=== PATIENT | female | born 1990 | race Two or more races ===

== ENCOUNTER 2017-02-02 13:04 | Emergency (ER) | payer OTHER ==
[~2017-02-02] VITALS: Ht 149.9 cm; Wt 59.0 kg
[~2017-02-02 13:04] MED LIST: ALBUTEROL SULF8.5 GM INH; AZITHROMYCIN250 MG ORAL; COLACE100 MG ORAL; CYCLOBENZAPRINE10 MG ORAL; IBUPROFEN600 MG ORAL; NAPROSYN500 M1 ORAL; NORCO 5-325 TA1 EAC1 ORAL; PREDNISONE20 MG ORAL; PREDNISONE50 MG ORAL; VALIUM5 MG ORAL
[2017-02-02 13:09] VITALS: BP 107/64
[2017-02-02] MEDS ORDERED: AMOXICILLIN500 MG ORAL (13:41)
[2017-02-02] MEDS ORDERED: IBUPROFEN600 MG ORAL (13:41)
[2017-02-02] MEDS ORDERED: TESSALON PERLE100 MG ORAL (13:41)
[2017-02-02 13:53] VITALS: BP 112/67
--- NOTE | 2017-02-02 14:37 | Emergency Room Report ---
History of Present Illness General Chief Complaint: Flu Like Symptoms Present Illness HPI The patient is a 26-year-old female presenting for sore throat, productive cough , and subjective fevers for the past 2 weeks. She has not tried any medications. She denies any sick contacts or recent travel. Pain is described as an 8/10 dull ache to the back of the throat and does not radiate. Pain is worse with swallowing. She denies any other symptoms including N, V, MORGAN, neck pain, Allergies: Coded Allergies: No Known Allergies (Unverified , 12/29/13) Patient History Past Medical History: see triage record Pertinent Family History: none Reviewed Nursing Documentation: PMH: Agreed, PSxH: Agreed Nursing Documentation-PMH Hx Asthma: Yes Hx Gastrointestinal Problems: Yes - GERD Hx Seizures: Yes Review of Systems All Other Systems: negative except mentioned in HPI Physical Exam Vital Signs Date Time Temp Pulse Resp B/P Pulse Ox O2 Delivery O2 Flow Rate FiO2 02/02/17 13:09 97.9 20 107/64 100 Room Air 02/02/17 13:09 86 Sp02 EP Interpretation: reviewed, normal General Appearance: no apparent distress, alert, GCS 15, non-toxic Head: normocephalic, atraumatic Eyes: bilateral eye PERRL, bilateral eye normal inspection ENT: hearing grossly normal, no angioedema, normal voice, uvula midline, tonsillar swelling, pharyngeal erythema Neck: full range of motion, supple/symm/no masses Respiratory: chest non-tender, lungs clear, normal breath sounds, no wheezing, speaking full sentences Cardiovascular #1: regular rate, rhythm, no edema Musculoskeletal: back normal, gait/station normal, normal range of motion, non- tender Neurologic: alert, oriented x3, responsive, motor strength/tone normal, sensory intact, speech normal Psychiatric: judgement/insight normal, memory normal, mood/affect normal, no suicidal/homicidal ideation Skin: normal color, no rash, warm/dry, well hydrated Lymphatic: no adenopathy Medical Decision Making PA Attestation Dr. Alonzo is my supervising physician. Patient management was discussed with my supervising physician Diagnostic Impression: Primary Impression: Pharyngitis, acute Qualified Codes: J02.9 - Acute pharyngitis, unspecified ER Course The patient is a 26-year-old female presenting for sore throat, productive cough , and subjective fevers Differential diagnosis include but not limited to pharyngitis, sinusitis, AOM, bronchitis, PNA Physical exam: Vitals within normal limits. Afebrile. No apparent distress HEENT exam: There is bilateral tonsillar edema, erythema. Uvula midline. Moist mucous membranes. There is bilateral cervical lymphadenopathy. Lungs are clear to auscultation bilaterally Skin is warm and dry. No rash The patient will be discharged home with a prescription for amoxicillin and is given ER precautions. Patient will followup with primary care Last Vital Signs Date Time Temp Pulse Resp B/P Pulse Ox O2 Delivery O2 Flow Rate FiO2 02/02/17 13:53 88 16 112/67 99 Room Air 02/02/17 13:09 97.9 Status: improved Disposition: HOME, SELF-CARE Condition: Improved Scripts Benzonatate* (TESSALON PERLE*) 100 Mg Capsule 100 MG ORAL THREE TIMES A DAY, #15 PERLE Prov: TRESA VENTURA.A. 02/02/17 Amoxicillin* (AMOXIL*) 500 Mg Capsule 500 MG ORAL Q12HR, #20 CAP Prov: TRESA VENTURA P.A. 02/02/17 Ibuprofen* (MOTRIN*) 600 Mg Tablet 600 MG ORAL Q8H Y for For Pain, #30 TAB 0 Refills Prov: TRESA VENTURA P.A. 02/02/17 Referrals: [facility],REFERRING (PCP) Patient Instructions: Pharyngitis Additional Instructions: I discussed my findings with the patient. All questions and concerns have been answered. Treatment and medication compliance have been addressed. I advised the patient that they need to follow up with PMD in 3-5 days. Return to ED if pain remains or worsens, cough worsens or remains, you notice blood in your sputum, you notice wheezing, you experience a fever, or if needed for any reason. Patient verbalized understanding of discharge instructions. TRESA VENTURA Feb 02, 2017 14:36
== END 2017-02-02 13:55 | disposition home or self-care (01) ==
LOC: EMR 13:40
DX: J02.9 Acute pharyngitis, unspecified (principal); K21.9 Gastro-esophageal reflux disease without esophagitis; J45.909 Unspecified asthma, uncomplicated
CPT/HCPCS: 99284

== ENCOUNTER 2017-08-03 17:06 | Emergency (ER) | payer OTHER ==
[~2017-08-03] VITALS: Ht 149.9 cm; Wt 62.6 kg
[~2017-08-03 17:06] MED LIST changes: +AMOXICILLIN500 MG ORAL; +TESSALON PERLE100 MG ORAL
[2017-08-03 17:25] VITALS: BP 125/76
[2017-08-03 17:46] LABS: APPEARANCE,URINE CLEAR; KETONES,URINE NEGATIVE (NEGATIVE); LEUKOCYTE ESTERASE ,URINE 1+ (NEGATIVE); NITRITE,URINE NEGATIVE (NEGATIVE); PH,URINE 6 (4.5-8.0); PROTEIN,URINE NEGATIVE (NEGATIVE); UROBILINOGEN,URINE NORMAL MG/DL (0.0-1.0)
[2017-08-03 17:50] LABS: BACTERIA,URINE FEW /HPF; RBC,URINE 0-2 /HPF (0 - 2); SQUAMOUS EPITHELIAL CELL,UR FEW /LPF (NONE/OCC); WBC,URINE 0-2 /HPF (0 - 2)
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
[2017-08-03] MEDS ORDERED: ZOFRAN ODT4 MG ORAL (18:03)
[2017-08-03] MEDS ORDERED: PEPCID40 MG PO (18:03)
[2017-08-03 18:10] VITALS: BP 125/76
== END 2017-08-03 18:08 | disposition home or self-care (01) ==
LOC: EMR 17:49
DX: K29.70 Gastritis, unspecified, without bleeding (principal); K21.9 Gastro-esophageal reflux disease without esophagitis; J45.909 Unspecified asthma, uncomplicated
CPT/HCPCS: 81003; 81025; 99284

== ENCOUNTER 2017-08-14 12:58 | Emergency (ER) | payer OTHER ==
[~2017-08-14] VITALS: Ht 149.9 cm; Wt 62.6 kg
[~2017-08-14 12:58] MED LIST changes: +PEPCID40 MG PO; +ZOFRAN ODT4 MG ORAL
[2017-08-14 13:10] VITALS: BP 115/71
--- NOTE | 2017-08-14 13:23 | Emergency Room Report ---
History of Present Illness General Chief Complaint: Nausea, Vomiting, and Diarrhea Source: Patient Present Illness HPI 27 YO Female presents to the ED c/oN/V x 1 month and non -bloody diarrhea x 2 days. pt. reports epigastric burning, and bloating x 1 month. has GI appt. for next month. pt. returned from [place] recently, denies fevers, chills, blood in the stool/vomit, or black tarry stools. pt. is UTD with vaccinations. denies rashes or skin discoloration. Pt. states prior to [place] trip she was known to have a sensitive stomach with intermittent n/v, however this month she has had a significant increase in frequency of her symptoms. Denies fevers or chills. Denies CP, Palpitations, LOC, AMS, dizziness, Changes in Vision, Sensation, paresthesias, or a sudden severe headache. Allergies: Coded Allergies: No Known Allergies (Unverified , 12/29/13) Patient History Past Medical History: see triage record Past Surgical History: none Pertinent Family History: none Now: No Immunizations: UTD Reviewed Nursing Documentation: PMH: Agreed, PSxH: Agreed Nursing Documentation-PMH Past Medical History: No History, Except For Hx Asthma: Yes Hx Gastrointestinal Problems: Yes - GERD Hx Seizures: Yes Review of Systems All Other Systems: negative except mentioned in HPI Physical Exam Vital Signs Date Time Temp Pulse Resp B/P (MAP) Pulse Ox O2 Delivery O2 Flow Rate FiO2 08/14/17 13:00 97.2 65 16 115/71 98 Room Air Sp02 EP Interpretation: reviewed, normal General Appearance: no apparent distress, alert, GCS 15, non-toxic Head: normocephalic, atraumatic Eyes: bilateral eye normal inspection, bilateral eye PERRL ENT: hearing grossly normal, normal voice Neck: full range of motion Respiratory: lungs clear, normal breath sounds, speaking full sentences Cardiovascular #1: regular rate, rhythm Gastrointestinal: soft, no mass, no organomegaly, tenderness - generalized epigastric ttp to deep palpation, otherwise unremarkable, other - Negative [place] signs, Negative MacBurney's sign, Negative Rosvigns Sign, Negative Psoas , No Peritoneal signs. no jaundice Rectal: deferred Genitourinary: normal inspection, no CVA tenderness Musculoskeletal: back normal, gait/station normal, normal range of motion Neurologic: alert, oriented x3, responsive, motor strength/tone normal, sensory intact, speech normal Skin: normal color, no rash, other - no jaundice Lymphatic: no adenopathy Medical Decision Making PA Attestation Dr. mcmahon is my supervising Physician whom patient management has been discussed with. Diagnostic Impression: Primary Impression: Nausea, vomiting, and diarrhea ER Course 27 YO Female presents to the ED c/oN/V x 1 month and non -bloody diarrhea x 2 days. pt. reports epigastric burning, and bloating x 1 month. has GI appt. for next month. pt. returned from [place] recently, denies fevers, chills, blood in the stool/vomit, or black tarry stools. pt. is UTD with vaccinations. denies rashes or skin discoloration. Pt. states prior to [place] trip she was known to have a sensitive stomach with intermittent n/v, however this month she has had a significant increase in frequency of her symptoms. Denies fevers or chills. Denies CP, Palpitations, LOC, AMS, dizziness, Changes in Vision, Sensation, paresthesias, or a sudden severe headache. Ddx considered but are not limited to GE, colitis, acute appy, SBO, Cyclical Vomiting secondary to THC, * Vital signs: pt. is afebrile, non-toxic in appearance. H&PE are most consistent with Gastro enteritis lasting longer than 2 weeks. will do labs as pt. is a bounce back. abx will be considered although clinically pt. does not present in a manner in which I would promptly start abx on, will made educated decision with pt. once labs are back and we go over them. ORDERS: CBC: unremarkable, WNL- mild elevation in wbc of 12.5 which is most consistent with stress reaction from vomiting. -CMP: WNL- unremarkable, electrolytes ok, good renal function -Urine Hcg: Negative -UA: some rbc's, few bacteria with few squamous cells most consistent with contamination, no significant increase in inflammatory markers to suggest urinary infection at this time. ED INTERVENTIONS: -1000 NS iv hydration,--- Pt. only received 500cc as she requested to d/c before liter was finished. -Reglan 10 mg -PT. is now able to tolerate oral fluids. d/w pt. the results of laboratory work, and that GI specialist evaluation is a must for further work up of her prolonged symptoms, and history of sensitive stomach. collaborated with pt. in the decision that she will be treated conservatively until her GI appt. but if for any reason her symptoms change, unable to keep fluids down, fevers or blood to return immediately and she will be treated more aggressively. -I do not suspect an emergent condition at this time. With current presentation , pt. is stable for close outpatient follow up with conservative treatment until GI Specialist appt. . D/w pt. to return promptly to ED with worsening or new symptoms.- Pt. verbalizes' understanding and agreement with proposed treatment plan. DISCHARGE: At this time pt. is stable for d/c to home. Will provide printed patient care instructions, and any necessary prescriptions. Care plan and follow up instructions have been discussed with the patient prior to discharge. Labs Test 08/14/17 13:15 08/14/17 13:35 Urine Color Yellow Urine Appearance Slightly cloudy Urine pH 5 (4.5-8.0) Urine Specific [place] 1.025 (1.005-1.035) Urine Protein 2+ (NEGATIVE) Urine Glucose (UA) Negative (NEGATIVE) Urine Ketones 1+ (NEGATIVE) Urine Occult Blood 3+ (NEGATIVE) Urine Nitrite Negative (NEGATIVE) Urine Bilirubin Negative (NEGATIVE) Urine Urobilinogen 1 MG/DL (0.0-1.0) Urine Leukocyte Esterase 1+ (NEGATIVE) Urine RBC 2-4 /HPF (0 - 2) Urine WBC 2-4 /HPF (0 - 2) Urine Squamous Epithelial Cells Few /LPF (NONE/OCC) Urine Amorphous Sediment Few /LPF (NONE) Urine Bacteria Few /HPF (NONE) Urine Mucus Few /LPF (NONE/OCC) Urine HCG, Qualitative Negative White Blood Count 12.3 K/UL (4.8-10.8) Red Blood Count 4.71 M/UL (4.20-5.40) Hemoglobin 14.3 G/DL (12.0-16.0) Hematocrit 42.5 % (37.0-47.0) Mean Corpuscular Volume 90 FL (80-99) Mean Corpuscular Hemoglobin 30.3 PG (27.0-31.0) Mean Corpuscular Hemoglobin Concent 33.6 G/DL (32.0-36.0) Red Cell Distribution Width 10.9 % (11.6-14.8) Platelet Count 274 K/UL (150-450) Mean Platelet Volume 8.1 FL (6.5-10.1) Neutrophils (%) (Auto) 72.7 % (45.0-75.0) Lymphocytes (%) (Auto) 20.1 % (20.0-45.0) Monocytes (%) (Auto) 5.3 % (1.0-10.0) Eosinophils (%) (Auto) 1.0 % (0.0-3.0) Basophils (%) (Auto) 0.9 % (0.0-2.0) Sodium Level 136 MMOL/L (136-145) Potassium Level 3.7 MMOL/L (3.5-5.1) Chloride Level 102 MMOL/L (98-107) Carbon Dioxide Level 26 MMOL/L (21-32) Anion Gap 8 mmol/L (5-15) Blood Urea Nitrogen 10 mg/dL (7-18) Creatinine 0.7 MG/DL (0.55-1.30) Estimat Glomerular Filtration Rate > 60 mL/min (>60) Glucose Level 84 MG/DL (74-106) Calcium Level 8.9 MG/DL (8.5-10.1) Total Bilirubin 0.3 MG/DL (0.2-1.0) Aspartate Amino Transf (AST/SGOT) 16 U/L (15-37) Alanine Aminotransferase (ALT/SGPT) 22 U/L (12-78) Alkaline Phosphatase 76 U/L (46-116) Total Protein 7.1 G/DL (6.4-8.2) Albumin 3.6 G/DL (3.4-5.0) Globulin 3.5 g/dL Albumin/Globulin Ratio 1.0 (1.0-2.7) Lipase 112 U/L (73-393) Last Vital Signs Date Time Temp Pulse Resp B/P (MAP) Pulse Ox O2 Delivery O2 Flow Rate FiO2 08/14/17 13:00 97.2 65 16 115/71 98 Room Air Disposition: HOME, SELF-CARE Condition: Stable Scripts Omeprazole (OMEPRAZOLE) 20 Mg Tablet.dr 20 MG ORAL DAILY for 20 Days, #20 TAB Prov: Sridevi Gregory 08/14/17 Metoclopramide Hcl* (REGLAN*) 10 Mg Tablet 10 MG ORAL THREE TIMES A DAY, #30 TAB Prov: Sridevi Gregory 08/14/17 Referrals: [facility] Patient Instructions: VOMITING AND DIARRHEA, Nonspecific (Adult) Additional Instructions: Take medications as directed. Follow up with a GI SPECIALIST in 3-5 days, even if your symptoms have resolved. --Please review GI SPECIALIST REFERRAL. Return sooner to ED if new symptoms occur, or current symptoms become worse. - Please note that this Emergency Department Report was dictated using [email or web address] business analyst technology software, occasionally this can lead to erroneous entry secondary to interpretation by the dictation equipment. Sridevi Gregory Aug 14, 2017 13:23
[2017-08-14] MEDS ORDERED: Metoclopramide 10mg/2ml Inj IVP ONE (13:30)
[2017-08-14 13:35] LABS: APPEARANCE,URINE SLIGHTLY CLOUDY; BILIRUBIN, URINE NEGATIVE (NEGATIVE); GLUCOSE, URINE (UA) NEGATIVE (NEGATIVE); KETONES,URINE 1+ (NEGATIVE); LEUKOCYTE ESTERASE ,URINE 1+ (NEGATIVE); NITRITE,URINE NEGATIVE (NEGATIVE); PH,URINE 5 (4.5-8.0); PROTEIN,URINE 2+ (NEGATIVE); UROBILINOGEN,URINE 1 MG/DL (0.0-1.0)
[2017-08-14 13:44] LABS: COLOR,URINE YELLOW
[2017-08-14 13:52] LABS: BASOPHILS % (AUTO) 0.9 % (0.0-2.0); HEMATOCRIT 42.5 % (37.0-47.0); HEMOGLOBIN 14.3 G/DL (12.0-16.0); LYMPHOCYTES % (AUTO) 20.1 % (20.0-45.0); MEAN CORPUSCULAR VOLUME 90 FL (80-99); MONOCYTES % (AUTO) 5.3 % (1.0-10.0); NEUTROPHILS % (AUTO) 72.7 % (45.0-75.0); PLATELET COUNT 274 K/UL (150-450); RED BLOOD COUNT 4.71 M/UL (4.20-5.40); RED CELL DISTRIBUTION WIDTH 10.9 % (11.6-14.8); WHITE BLOOD COUNT 12.3 K/UL (4.8-10.8)
[2017-08-14 14:12] LABS: ALANINE AMINOTRANSFERASE 22 U/L (12-78); ALBUMIN 3.6 G/DL (3.4-5.0); ALKALINE PHOSPHATASE 76 U/L (46-116); ANION GAP 8 mmol/L (5-15); ASPARTATE AMINO TRANSFERASE 16 U/L (15-37); BILIRUBIN,TOTAL 0.3 MG/DL (0.2-1.0); BLOOD UREA NITROGEN 10 mg/dL (7-18); CALCIUM 8.9 MG/DL (8.5-10.1); CARBON DIOXIDE 26 MMOL/L (21-32); CHLORIDE 102 MMOL/L (98-107); CREATININE 0.7 MG/DL (0.55-1.30); POTASSIUM 3.7 MMOL/L (3.5-5.1); SODIUM 136 MMOL/L (136-145)
[2017-08-14] MEDS ORDERED: REGLAN10 MG ORAL (14:53)
[2017-08-14] MEDS ORDERED: OMEPRAZOLE20 M3 ORAL (14:53)
[2017-08-14 15:04] VITALS: BP 115/71
== END 2017-08-14 15:00 | disposition home or self-care (01) ==
LOC: EMR 13:22
DX: R11.2 Nausea with vomiting, unspecified (principal); R19.7 Diarrhea, unspecified; J45.909 Unspecified asthma, uncomplicated; K21.9 Gastro-esophageal reflux disease without esophagitis
CPT/HCPCS: 36415; 80053; 81003; 81025; 83690; 85025; 96361; 96374; 99284; J2765

== ENCOUNTER 2018-05-21 09:18 | Emergency (ER) | payer OTHER ==
[~2018-05-21] VITALS: Ht 149.9 cm; Wt 58.1 kg
[~2018-05-21 09:18] MED LIST changes: +OMEPRAZOLE20 M3 ORAL; +REGLAN10 MG ORAL
--- NOTE | 2018-05-21 09:43 | Emergency Room Report ---
History of Present Illness General Chief Complaint: Skin Rash/Abscess Source: Patient Present Illness HPI Patient presents with complaints of rash on her upper arm and legs Patient felt that there was likely an allergic reaction and had used some Benadryl without much relief The areas came on yesterday Patient denies any recent travel Denies any chest pain or shortness of breath denies any back or flank pain Denies any vomiting or diarrhea Denies any new medication Allergies: Coded Allergies: No Known Allergies (Unverified , 12/29/13) Patient History Past Medical History: see triage record Pertinent Family History: none Last Menstrual Period: 04/20/18 Now: No Reviewed Nursing Documentation: PMH: Agreed; PSxH: Agreed Nursing Documentation-PMH Past Medical History: No History, Except For Hx Asthma: Yes Hx Gastrointestinal Problems: Yes - GERD Hx Seizures: Yes Review of Systems All Other Systems: negative except mentioned in HPI Physical Exam Vital Signs Date Time Temp Pulse Resp B/P (MAP) Pulse Ox O2 Delivery O2 Flow Rate FiO2 05/21/18 09:23 98.2 66 18 130/70 99 Room Air 98.2 Sp02 EP Interpretation: reviewed, normal General Appearance: well appearing, no apparent distress Head: normocephalic, atraumatic Eyes: bilateral eye PERRL, bilateral eye EOMI ENT: hearing grossly normal, normal pharynx, TMs + canals normal, uvula midline Neck: full range of motion, supple, no meningismus, no bony tend Respiratory: lungs clear, normal breath sounds, no rhonchi, no respiratory distress, no retraction, no accessory muscle use Cardiovascular #1: normal peripheral pulses, regular rate, rhythm, no edema, no gallop, no JVD, no murmur Gastrointestinal: normal bowel sounds, non tender, soft, no mass, no organomegaly, non-distended, no guarding, no hernia, no pulsatile mass, no rebound Genitourinary: no CVA tenderness Musculoskeletal: normal inspection Neurologic: oriented x3, responsive, software engineering specialist III-XII nml as tested, motor strength/ tone normal, sensory intact Psychiatric: mood/affect normal Skin: other - Several areas of mild raised erythematous lesions, most of the areas are in pairs, appeared to be likely consistent with spider/insect bites, no obvious fluctuance, no dermatomal spread Lymphatic: normal inspection, no adenopathy Medical Decision Making Diagnostic Impression: Primary Impression: Rash and other nonspecific skin eruption Additional Impression: Insect bite ER Course Patient has findings consistent with insect bite I do not suspect any obvious secondary cellulitis Patient is provided with symptomatically medication and requires initial conservative outpatient trial with close follow-up Last Vital Signs Date Time Temp Pulse Resp B/P (MAP) Pulse Ox O2 Delivery O2 Flow Rate FiO2 05/21/18 09:23 98.2 66 18 130/70 99 Room Air 98.2 Status: improved Disposition: HOME, SELF-CARE Condition: Stable Scripts Calamine/Zinc Oxide (CALAMINE LOTION*) 177 Ml Suspension 1 APPLIC TP TID for 7 Days, ML 0 Refills Prov: Chantal Barker DO 05/21/18 Prednisone* (PREDNISONE*) 20 Mg Tablet 20 MG ORAL BID, #8 TAB Prov: Chantal Barker DO 05/21/18 Additional Instructions: Patient is provided with the discharge instructions notified to follow up with primary doctor in the next 2-3 days otherwise return to the er with any worsening symptoms. Please note that this report is being documented using BM[employer] technology. This can lead to erroneous entry secondary to incorrect interpretation by the dictating instrument. Chantal Barker DO May 21, 2018 09:42
[2018-05-21] MEDS ORDERED: CALAMINE LOTIO177 ML TP (09:47)
[2018-05-21] MEDS ORDERED: PREDNISONE20 MG ORAL (09:47)
[2018-05-21 10:00] VITALS: BP 130/70
[2018-05-21 10:05] VITALS: BP 119/87
== END 2018-05-21 10:05 | disposition home or self-care (01) ==
LOC: EMR 09:50
DX: S40.862A Insect bite (nonvenomous) of left upper arm, initial encounter (principal); S40.861A Insect bite (nonvenomous) of right upper arm, initial encounter; S80.862A Insect bite (nonvenomous), left lower leg, initial encounter; S80.861A Insect bite (nonvenomous), right lower leg, initial encounter; W57.XXXA Bitten or stung by nonvenomous insect and other nonvenomous arthropods, initial encounter; Y93.89 Activity, other specified; Y92.9 Unspecified place or not applicable; J45.909 Unspecified asthma, uncomplicated
CPT/HCPCS: 99284

== ENCOUNTER 2019-06-14 20:33 | Emergency (ER) | payer MEDICAID, OTHER ==
[~2019-06-14] VITALS: Ht 149.9 cm; Wt 56.7 kg
[~2019-06-14 20:33] MED LIST changes: +CALAMINE LOTIO177 ML TP
[2019-06-14] MEDS ORDERED: GABAPENTIN400 MG ORAL (20:41)
[2019-06-14 20:46] VITALS: BP 134/75
--- NOTE | 2019-06-14 20:48 | NUR ---
ER Nurse Note: Pt walked in c/o flu like symptoms for one week. Pt stated she has a headache, sore throat, nasal congestion, body aches, difficutly swollowing. Pt states taking OTC meds but does not effective. Oral temp 98.7F. Pt coughing with minor clear phlegm. Will continue to montior.
--- NOTE | 2019-06-14 20:56 | Emergency Room Report ---
History of Present Illness General Chief Complaint: Flu Like Symptoms Source: Patient Present Illness HPI Disclaimer: Please note that this report is being documented using DRAGON technology. This can lead to erroneous entry secondary to incorrect interpretation by the dictating instrument. HPI: 29-year-old female with history of asthma presents for evaluation of cough and fevers. Symptoms have been present approximately 7 days. Started with nasal congestion, sore throat and nausea without vomiting. She has been noticing fevers at home between 101 103 which responded well to NSAIDs. She has been taking Mucinex, cough syrup and Tylenol/Motrin as needed with good control of her symptoms however she notes a progressive worsening nonproductive cough and due to lack of improvement in her symptoms over the past 7 days came in today for evaluation. She denies any rash, abdominal pain, vomiting, diarrhea, chest pain, shortness of breath. She has been using her albuterol inhaler intermittently but states not too much. PMH: Asthma PSH: None Allergies: Denies Social Hx: Denies drug, alcohol or tobacco use Allergies: Coded Allergies: No Known Allergies (Unverified , 12/29/13) Patient History Last Menstrual Period: 05/16/19 Now: No Nursing Documentation-PMH Hx Asthma: Yes - bronchitis Hx Gastrointestinal Problems: Yes - GERD Hx Seizures: Yes Review of Systems All Other Systems: negative except mentioned in HPI Physical Exam Vital Signs Date Time Temp Pulse Resp B/P (MAP) Pulse Ox O2 Delivery O2 Flow Rate FiO2 06/14/19 20:37 98.6 91 22 134/75 (94) 98 Room Air General: Awake and alert, no acute distress HEENT: NC/AT. No tenderness over the frontal or maxillary sinuses. EOMI. anicteric sclera. Pharynx is erythematous but no edema. Tonsils are 1+, no exudate. Moist mucous membranes Cardiovascular: RRR. S1 and S2 normal. No murmur appreciated Resp: Normal work of breathing. No cough, wheezing or crackles appreciated Abdomen: Abdomen is soft, nondistended. Nontender Skin: Intact. No abrasions, laceration or rash over the exposed skin MSK: Normal tone and bulk. Moving all extremities. No obvious deformity. Neuro: Awake and alert. Mentating appropriately. Medical Decision Making Diagnostic Impression: Primary Impression: URI (upper respiratory infection) ER Course 39-year female presents for evaluation of 1 week worsening fevers and cough. Symptoms are consistent with an upper respiratory infection, most likely viral in nature however will obtain a two-view chest x-ray to rule out pneumonia. Otherwise, she is well-appearing. I do not believe blood work is indicated at this time as she is non-vomiting, no diarrhea, eating and drinking well and has no other complaints at this time. Chest X-Ray Diagnostic Results Chest X-Ray Diagnostic Results : Chest X-Ray Ordered: Yes # of Views/Limited/Complete: 2 View Indication: Shortness of Breath EP Interpretation: Yes Interpretation: no consolidation, no effusion, no pneumothorax Impression: No acute disease Electronically Signed by: Electronically signed by Dr. Mehul Weeks Last Vital Signs Date Time Temp Pulse Resp B/P (MAP) Pulse Ox O2 Delivery O2 Flow Rate FiO2 06/14/19 20:46 98.6 91 22 134/75 98 Room Air Reevaluation Impression No evidence of pneumonia on chest x-ray. The patient is feeling well and would like to be discharged home. She can follow-up as an outpatient and is stable for discharge. She will continue her current medications. I discussed with her the need for PMD follow-up especially if symptoms fail to improve in the next few days. She can return to the emergency department anytime with any new or worsening symptoms. Disposition: HOME, SELF-CARE Condition: Stable Mehul Weeks MD Jun 14, 2019 20:56
[2019-06-14 21:32] VITALS: BP 134/75
--- NOTE | 2019-06-14 21:32 | NUR ---
ER Nurse Note: Pt seen, treated, medically cleared for discharge by ERMD. Discharge instuctions given with repeat verbalization by pt. Emphasized to follow up with primay care provider. All orders completed per ERMD orders. Pt a&ox4, VSS, no signs of distress. ID band removed. All questions answered per pt's questions. Pt left with all belongings, left with own transportation.
== END 2019-06-14 21:32 | disposition home or self-care (01) ==
LOC: EMR 21:09
DX: J06.9 Acute upper respiratory infection, unspecified (principal); K21.9 Gastro-esophageal reflux disease without esophagitis
CPT/HCPCS: 71046; 99283

== ENCOUNTER 2019-08-23 10:51 | Emergency (ER) | payer OTHER ==
[~2019-08-23] VITALS: Ht 149.9 cm; Wt 58.1 kg
[~2019-08-23 10:51] MED LIST changes: +GABAPENTIN400 MG ORAL
--- NOTE | 2019-08-23 11:08 | NUR ---
ED Nurse Note: Patient presented to ER brought in by self from home with right 3rd digit laceration with metal object. Patient pain level 6/10. Wound is not actively bleeding. Patient aaox4. Patient ambulatory. No acute distress noted.
[2019-08-23 11:10] VITALS: BP 111/72
[2019-08-23] MEDS ORDERED: Tetanus/Diptheria/Pertussis IM ONE (11:15)
[2019-08-23] MEDS ORDERED: Lidocaine 1% Plain 30 ml INJ ONE (12:15)
--- NOTE | 2019-08-23 12:47 | Emergency Room Report ---
History of Present Illness General Chief Complaint: Laceration Source: Patient Present Illness HPI 29-year-old female accompanied by family complaining of right third finger laceration sustained 1 hour ago. Was disassembling couch when that will cut her right third finger. Bleeding. Pain is 3 out of 10. No aggravating/ relieving factors. Unknown last tetanus vaccine. Denies numbness. Not on blood thinner. Allergies: Coded Allergies: No Known Allergies (Unverified , 12/29/13) Patient History Past Medical History: asthma Past Surgical History: none Social History: Denies: smoking, alcohol use Now: No Nursing Documentation-[facility] [place] Past Medical History: No History, Except For Hx Asthma: Yes - bronchitis Hx Gastrointestinal Problems: Yes - GERD Hx Seizures: Yes Review of Systems All Other Systems: negative except mentioned in HPI Physical Exam Vital Signs Date Time Temp Pulse Resp B/P (MAP) Pulse Ox O2 Delivery O2 Flow Rate FiO2 08/23/19 11:01 98.1 72 18 111/72 (85) 99 Room Air Sp02 EP Interpretation: reviewed, normal Respiratory: chest non-tender, lungs clear, normal breath sounds, speaking full sentences Cardiovascular #1: regular rate, rhythm, no edema Musculoskeletal: non-tender Neurologic: sensory intact - Sensation intact to light touch. Neurovascularly intact. (Able to give thumbs up, make an ok sign, cross digits 2 and 3, Psychiatric: judgement/insight normal, memory normal, mood/affect normal Skin: laceration - 1 cm C-shaped laceration over right third PIP joint, edges easily approximatable Procedures Laceration/Wound Repair Laceration/Wound Repair : Consent: Verbal Wound Location: upper extremity Wound Length (cm): 1 Wound Explored: no foreign body removed Irrigated w/ Saline (ccs): 40 Betadine Prep?: Yes Anesthesia: 1% Lidocaine Volume Anesthetic (ccs): 2 Wound Repaired With: sutures Suture Size/Type: 5:0, proline Number of Sutures: 3 Layer Closure?: No Sterile Dressing Applied?: Yes Splint Applied?: Yes Patient Tolerated: Well Complications: None Medical Decision Making PA Attestation This patient was seen under the direct supervision of Dr. Coates, who directed all aspects of care and diagnostic interpretation. Reaction to Intervention: Improved Diagnostic Impression: Primary Impression: Laceration of right middle finger Qualified Codes: S61.212A - Laceration without foreign body of right middle finger without damage to nail, initial encounter ER Course ED course HPI: 29-year-old female accompanied by family complaining of right third finger laceration sustained 1 hour ago. Was disassembling couch when that will cut her right third finger. Bleeding. Pain is 3 out of 10. No aggravating/ relieving factors. Unknown last tetanus vaccine. Denies numbness. Not on blood thinner. Ddx: laceration, foreign body, arterial injury, nerve injury, fracture or tendon injury. HPI & PE consistent with: Laceration of right middle finger. Orders/ Interventions: Patient was able to flex and extend digits against resistance distal to the laceration with no apparent tendon injury, CMS intact distal to injury with no evidence of nerve damage. Wound inspected under direct bright light with good visualization. No overt foreign body. Area hemostatic. Area extensively irrigated with sterile normal saline under pressure. Laceration repaired with three 5-0 prolene sutures. Patient tolerated procedure well and neurovascular exam intact and unchanged post repair with intact distal pulses and cap refill. Finger splint placed to prevent flexion of finger. Wound care discussed. Tdap vaccine administered Disposition: Wound check in 2 days. Suture removal in 10 days. Keep clean and dry. At this time pt. is stable for d/c to home. Will provide printed patient care instructions, and any necessary prescriptions. Care plan and follow up instructions have been discussed with the patient prior to discharge. Please note that this Emergency Department Report was dictated using SuperTruperreceptionist doctor's office technology software, occasionally this can lead to erroneous entry secondary to interpretation by the dictation equipment. Last Vital Signs Date Time Temp Pulse Resp B/P (MAP) Pulse Ox O2 Delivery O2 Flow Rate FiO2 08/23/19 11:10 98.1 65 18 111/72 99 Room Air Status: unchanged Disposition: HOME, SELF-CARE Condition: Improved Patient Instructions: Laceration Care, Adult Additional Instructions: Followup in 2 days for wound check. Return to ER if worsening symptoms, new symptoms or sudden change in condition. Re Sherman Aug 23, 2019 12:47
[2019-08-23 12:50] VITALS: BP 128/98
--- NOTE | 2019-08-23 12:50 | NUR ---
ER DISCHARGE NOTE: Patient is cleared to be discharged per ERMD, pt is aox4, on room air, with stable vital signs. pt was given discharge instructions, pt was able to verbalize understanding, pt id band removed. pt is able to ambulate with steady gait. Pt stable upon discharge.
== END 2019-08-23 12:50 | disposition home or self-care (01) ==
LOC: EMR 12:45
DX: S61.212A Laceration without foreign body of right middle finger without damage to nail, initial encounter (principal); Z23 Encounter for immunization; K21.9 Gastro-esophageal reflux disease without esophagitis; W26.9XXA Contact with unspecified sharp object(s), initial encounter; Y92.9 Unspecified place or not applicable
CPT/HCPCS: 12001; 29130; 90471; 90715; J2001; Z7502; 99282

== ENCOUNTER 2019-08-26 09:40 | Emergency (ER) | payer OTHER ==
[~2019-08-26] VITALS: Ht 149.9 cm; Wt 58.1 kg
[2019-08-26 09:45] VITALS: BP 113/77
--- NOTE | 2019-08-26 09:45 | NUR ---
ED Nurse Note: pt walked in to ED for suture removal on right 3rd digit finger. suture done on last fri. no sign of infection noted. no discharge, no local fever or redness noted. pt c/o mild pain on incision site. AAO x4. respirations even and non-labored noted. will wait for the further order.
--- NOTE | 2019-08-26 10:23 | Emergency Room Report ---
History of Present Illness General Chief Complaint: Wound Recheck/Suture Removal Source: Patient Present Illness HPI Patient had sutures 2 days ago. The joint space is swollen at this time. She is concerned that there might be a foreign body. No x-rays were done at that time. Apparently this occurred from a piece of metal from a couch that seem to be cracked afterwards. She denies any fevers or chills. There is no redness in the area. The pain is persisting. She rates the pain 5/10, aching and somewhat sharp. No numbness. R handed. H/O seizures and asthma. No wheezing. 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 Last Menstrual Period: 03/20/19 Now: No : 0 Para: 0 Reviewed Nursing Documentation: PMH: Agreed; PSxH: Agreed Nursing Documentation-PMH Past Medical History: No History, Except For Hx Asthma: Yes Hx Gastrointestinal Problems: Yes - GERD Hx Seizures: Yes Review of Systems Constitutional: Denies: fever Respiratory: Reports: see HPI Musculoskeletal: Reports: see HPI Skin: Reports: see HPI Neurological: Reports: see HPI Physical Exam Vital Signs Date Time Temp Pulse Resp B/P (MAP) Pulse Ox O2 Delivery O2 Flow Rate FiO2 08/26/19 09:43 97.9 83 18 113/77 (89) 98 Room Air Sp02 EP Interpretation: reviewed, normal General Appearance: well appearing, no apparent distress, GCS 15 Head: normocephalic Eyes: bilateral eye normal inspection, bilateral eye PERRL ENT: moist mucus membranes Neck: normal inspection Respiratory: normal inspection Cardiovascular #1: regular rate, rhythm Gastrointestinal: normal inspection Musculoskeletal: gait/station normal, tenderness - MIP R middle finger, slight decrease ROM Neurologic: alert, oriented x3, distal neuro normal Psychiatric: mood/affect normal Skin: wd healing/no infection noted, other - Middle joints of the middle finger is somewhat swollen. No erythema Medical Decision Making Diagnostic Impression: Primary Impression: Encounter for postoperative wound check ER Course Patient presents with swelling after sutures placed 2 days ago. Differential includes retained foreign body, possible joint infection, laceration reaction amongst others. X-ray indicated. Also Keflex will be started. X-ray without FB. STS. Discussed findings with patient and treatment plan. Also told that wood or plastic would not show up on x-ray and might need further care. Patient stable for outpatient observation and treatment. Other X-Ray Diagnostic Results Other X-Ray Diagnostic Results : # of Views/Limited Vs Complete: 3 View Indication: Swelling EP Interpretation: Yes Interpretation: no dislocation, no fractures, other - no fb Impression: Other Electronically Signed by: Electronically signed by Drew Jones MD Last Vital Signs Date Time Temp Pulse Resp B/P (MAP) Pulse Ox O2 Delivery O2 Flow Rate FiO2 08/26/19 11:17 98.0 70 16 121/70 100 Room Air Status: improved Disposition: HOME, SELF-CARE Condition: Improved Scripts Cephalexin* (KEFLEX*) 500 Mg Capsule 500 MG ORAL EVERY 6 HOURS, #28 CAP Prov: Drew Jones MD 08/26/19 Bacitracin (Bacitracin) 28.4 Gm Oint...g. 1 APPLIC TOPIC BID, #10 GM Prov: Drew Jones MD 08/26/19 Drew Jones MD Aug 26, 2019 10:23
[2019-08-26] MEDS ORDERED: Cephalexin 500mg cap ORAL ONE (10:30)
[2019-08-26] MEDS ORDERED: BACITRACIN15 GM TOPIC (11:03)
[2019-08-26] MEDS ORDERED: CEPHALEXIN500 MG ORAL (11:03)
[2019-08-26 11:17] VITALS: BP 121/70
--- NOTE | 2019-08-26 11:17 | NUR ---
ER DISCHARGE NOTE: Patient is cleared to be discharged per ERMD, pt is aox4, on room air, with stable vital signs. pt was given dc and prescription instructions, pt was able to verbalize understanding, pt id band removed without complications. pt is able to ambulate with steady gait. pt took all belongings.
--- NOTE | 2019-08-26 13:03 | Diagnostic Imaging Report ---
Indication: pain in finger. trauma Findings: 3 views of the right third finger were obtained. No acute fractures, malalignment, erosions, or periosteal reaction are seen. Soft tissues are unremarkable. Impression: No acute findings.
== END 2019-08-26 11:17 | disposition home or self-care (01) ==
LOC: EMR 10:25
DX: M25.541 Pain in joints of right hand (principal); K21.9 Gastro-esophageal reflux disease without esophagitis; G40.909 Epilepsy, unspecified, not intractable, without status epilepticus
CPT/HCPCS: 73140; Z7502; 99283

== ENCOUNTER 2019-09-21 20:07 | Emergency (ER) | payer OTHER ==
[~2019-09-21] VITALS: Ht 149.9 cm; Wt 61.2 kg
[~2019-09-21 20:07] MED LIST changes: +BACITRACIN15 GM TOPIC; +CEPHALEXIN500 MG ORAL
[2019-09-21 20:15] VITALS: BP 119/79
--- NOTE | 2019-09-21 20:15 | NUR ---
ED Nurse Note: Pt aaox4 , vss, no acute distress. Pt is cooperative and well groomed. Pt c/o headache, vomiting, watery stool, and abdominal pain x 3 days. Pt has neck pain and hyperactive bowel sounds. Pt has no skin issues and her freind is at bedside.
--- NOTE | 2019-09-21 20:34 | Emergency Room Report ---
History of Present Illness General Chief Complaint: Abdominal Pain Source: Patient Present Illness HPI Patient is a 29-year-old female presents after increased abdominal pain vomiting and diarrhea. She reports having associated headache. She states that she has been having multiple episodes of watery diarrhea she reports feeling somewhat lightheaded.Patient reports having a gradual onset of headache. She states she gets headaches fairly frequently but has not had prior work-up or imaging. She states that headaches are sometimes worse in the morning. She denies being . She denies any recent trauma. She reports having a throbbing type headache to the left side of her head. She denies any visual changes or photophobia.Reports having watery diarrhea. Crampy abdominal pain. Allergies: Coded Allergies: No Known Allergies (Unverified , 12/29/13) Patient History Past Medical History: see triage record Now: No Reviewed Nursing Documentation: PMH: Agreed; PSxH: Agreed Nursing Documentation-PMH Past Medical History: No History, Except For Hx Asthma: Yes Hx Gastrointestinal Problems: Yes - GERD Hx Seizures: Yes Review of Systems All Other Systems: negative except mentioned in HPI Physical Exam Vital Signs Date Time Temp Pulse Resp B/P (MAP) Pulse Ox O2 Delivery O2 Flow Rate FiO2 09/21/19 20:13 98.4 100 22 115/74 (88) 97 Room Air Sp02 EP Interpretation: reviewed, normal General Appearance: normal inspection, well appearing, no apparent distress, alert, GCS 15 Head: atraumatic ENT: normal ENT inspection, hearing grossly normal, normal voice Neck: normal inspection, full range of motion, supple, no bony tend Respiratory: normal inspection, lungs clear, normal breath sounds, no respiratory distress, no retraction, no wheezing Cardiovascular #1: regular rate, rhythm, no edema Gastrointestinal: normal inspection, normal bowel sounds, non tender, soft, no guarding, no hernia Genitourinary: no CVA tenderness Musculoskeletal: normal inspection, back normal, normal range of motion Neurologic: alert, motor strength/tone normal, top taper machine III-XII nml as tested, responsive, speech normal, normal inspection Psychiatric: normal inspection, judgement/insight normal, mood/affect normal Medical Decision Making Diagnostic Impression: Primary Impression: Viral gastroenteritis ER Course Patient presented for headache, vomiting and diarrhea. Differential diagnosis include was not limited to migraine headache, intracranial hemorrhage, gastroenteritis, electrolyte abnormality among others. Because of complexity of patient's case laboratory tests and imaging studies were ordered. Patient was noted to have some evidence of mild dehydration. She was given IV antiemetics as well as medications for headache with some improvement. She is also given oral potassium. CT imaging was ordered due to patient's history of frequent headaches without any prior imaging. CT imaging showed no evidence of acute abnormalities. Patient was noted to be able toward without assistance. She appears to be awake and alert and does not show any evidence of meningismus. Patient was advised to follow-up with primary care physician for recheck. Advised to return if worse. Labs Test 09/21/19 20:19 09/21/19 20:35 Urine Color Yellow Urine Appearance Clear Urine pH 7 (4.5-8.0) Urine Specific [place] 1.010 (1.005-1.035) Urine Protein Negative (NEGATIVE) Urine Glucose (UA) Negative (NEGATIVE) Urine Ketones 1+ (NEGATIVE) Urine Blood 1+ (NEGATIVE) Urine Nitrite Negative (NEGATIVE) Urine Bilirubin Negative (NEGATIVE) Urine Urobilinogen 1 MG/DL (0.0-1.0) Urine Leukocyte Esterase 1+ (NEGATIVE) Urine RBC 0-2 /HPF (0 - 2) Urine WBC 0-2 /HPF (0 - 2) Urine Squamous Epithelial Cells Occasional /LPF Urine Bacteria Occasional /HPF (NONE) White Blood Count 8.8 K/UL (4.8-10.8) Red Blood Count 5.00 M/UL (4.20-5.40) Hemoglobin 14.8 G/DL (12.0-16.0) Hematocrit 41.9 % (37.0-47.0) Mean Corpuscular Volume 84 FL (80-99) Mean Corpuscular Hemoglobin 29.7 PG (27.0-31.0) Mean Corpuscular Hemoglobin Concent 35.4 G/DL (32.0-36.0) Red Cell Distribution Width 9.3 % (11.6-14.8) Platelet Count 221 K/UL (150-450) Mean Platelet Volume 6.3 FL (6.5-10.1) Neutrophils (%) (Auto) 71.9 % (45.0-75.0) Lymphocytes (%) (Auto) 17.5 % (20.0-45.0) Monocytes (%) (Auto) 8.7 % (1.0-10.0) Eosinophils (%) (Auto) 1.4 % (0.0-3.0) Basophils (%) (Auto) 0.4 % (0.0-2.0) Sodium Level 137 MMOL/L (136-145) Potassium Level 3.3 MMOL/L (3.5-5.1) Chloride Level 102 MMOL/L (98-107) Carbon Dioxide Level 27 MMOL/L (21-32) Anion Gap 8 mmol/L (5-15) Blood Urea Nitrogen 13 mg/dL (7-18) Creatinine 0.7 MG/DL (0.55-1.30) Estimat Glomerular Filtration Rate > 60 mL/min (>60) Glucose Level 104 MG/DL (74-106) Calcium Level 8.7 MG/DL (8.5-10.1) Total Bilirubin 0.6 MG/DL (0.2-1.0) Aspartate Amino Transf (AST/SGOT) 15 U/L (15-37) Alanine Aminotransferase (ALT/SGPT) 18 U/L (12-78) Alkaline Phosphatase 85 U/L (46-116) Total Protein 7.1 G/DL (6.4-8.2) Albumin 3.6 G/DL (3.4-5.0) Globulin 3.5 g/dL Albumin/Globulin Ratio 1.0 (1.0-2.7) Lipase 107 U/L (73-393) Last Vital Signs Date Time Temp Pulse Resp B/P (MAP) Pulse Ox O2 Delivery O2 Flow Rate FiO2 09/21/19 20:13 98.4 100 22 115/74 (88) 97 Room Air Status: improved Disposition: HOME, SELF-CARE Condition: Stable Scripts Acetamin/Butalbital/Caffeine* (FIORICET*) 1 Ea Tab 1 TAB ORAL Q6H, #15 TAB 0 Refills Prov: Ethan Godinez MD 09/21/19 Ethan Godinez MD Sep 21, 2019 20:34
[2019-09-21] MEDS ORDERED: Lidocaine 2% Visc 15ml soln ORAL ONE (20:45)
[2019-09-21] MEDS ORDERED: Mylanta II UD 30ml ORAL ONE (20:45)
[2019-09-21] MEDS ORDERED: Dicyclomine HCl 10mg/5ml oral soln ORAL ONE (20:45)
[2019-09-21 20:47] LABS: APPEARANCE,URINE CLEAR; BILIRUBIN, URINE NEGATIVE (NEGATIVE); GLUCOSE, URINE (UA) NEGATIVE (NEGATIVE); KETONES,URINE 1+ (NEGATIVE); LEUKOCYTE ESTERASE ,URINE 1+ (NEGATIVE); NITRITE,URINE NEGATIVE (NEGATIVE); PH,URINE 7 (4.5-8.0); PROTEIN,URINE NEGATIVE (NEGATIVE); UROBILINOGEN,URINE 1 MG/DL (0.0-1.0)
[2019-09-21 20:49] LABS: COLOR,URINE YELLOW
[2019-09-21 20:52] LABS: BASOPHILS % (AUTO) 0.4 % (0.0-2.0); EOSINOPHILS % (AUTO) 1.4 % (0.0-3.0); HEMATOCRIT 41.9 % (37.0-47.0); HEMOGLOBIN 14.8 G/DL (12.0-16.0); LYMPHOCYTES % (AUTO) 17.5 % (20.0-45.0); MEAN CORPUSCULAR VOLUME 84 FL (80-99); MONOCYTES % (AUTO) 8.7 % (1.0-10.0); NEUTROPHILS % (AUTO) 71.9 % (45.0-75.0); PLATELET COUNT 221 K/UL (150-450); RED CELL DISTRIBUTION WIDTH 9.3 % (11.6-14.8); WHITE BLOOD COUNT 8.8 K/UL (4.8-10.8)
[2019-09-21 20:59] LABS: ANION GAP 8 mmol/L (5-15); BLOOD UREA NITROGEN 13 mg/dL (7-18); CALCIUM 8.7 MG/DL (8.5-10.1); CARBON DIOXIDE 27 MMOL/L (21-32); CHLORIDE 102 MMOL/L (98-107); CREATININE 0.7 MG/DL (0.55-1.30); POTASSIUM 3.3 MMOL/L (3.5-5.1); SODIUM 137 MMOL/L (136-145)
[2019-09-21 21:04] LABS: ALANINE AMINOTRANSFERASE 18 U/L (12-78); ALBUMIN 3.6 G/DL (3.4-5.0); ALKALINE PHOSPHATASE 85 U/L (46-116); ASPARTATE AMINO TRANSFERASE 15 U/L (15-37); BILIRUBIN,TOTAL 0.6 MG/DL (0.2-1.0)
--- NOTE | 2019-09-21 21:11 | NUR ---
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 Pt denies .
[2019-09-21] MEDS ORDERED: FIORICET1 EA ORAL (22:10)
[2019-09-21 22:19] VITALS: BP 109/81
--- NOTE | 2019-09-21 22:20 | NUR ---
ER DISCHARGE NOTE: Patient is cleared to be discharged per ERMD, pt is aox4, on room air, with stable vital signs. pt was given dc and prescription instructions, pt was able to verbalize understanding, pt id band and iv site removed without complications. pt is able to ambulate with steady gait. pt took all belongings. Pt states pain is 2/10. Pt left ED with a friend.
--- NOTE | 2019-09-21 22:31 | Diagnostic Imaging Report ---
EXAM: CT Head Without Intravenous Contrast CLINICAL HISTORY: PAIN TECHNIQUE: Axial computed tomography images of the head/brain without intravenous contrast. CTDI is 62 mGy and DLP is 1269 mGy-cm. One or more of the following dose reduction techniques were used: automated exposure control, adjustment of the mA and/or kV according to patient size, use of iterative reconstruction technique. COMPARISON: CT head dated 05/09/14. FINDINGS: Brain: Unremarkable. No hemorrhage. No significant white matter disease. No edema. Ventricles: Unremarkable. No ventriculomegaly. Bones/joints: Unremarkable. No acute fracture. Soft tissues: Unremarkable. Sinuses: Unremarkable as visualized. No acute sinusitis. Mastoid air cells: Unremarkable as visualized. No mastoid effusion. IMPRESSION: No acute intracranial pathology.
== END 2019-09-21 22:20 | disposition home or self-care (01) ==
LOC: EMR 20:43
DX: A08.4 Viral intestinal infection, unspecified (principal); K21.9 Gastro-esophageal reflux disease without esophagitis; G40.909 Epilepsy, unspecified, not intractable, without status epilepticus
CPT/HCPCS: 36415; 70450; 80053; 81003; 83690; 85025; 96374; J2405; Z7502; 99284; J8499

== ENCOUNTER 2020-05-24 13:27 | Emergency (ER) | payer OTHER ==
[~2020-05-24] VITALS: Ht 149.9 cm; Wt 54.9 kg
[~2020-05-24 13:27] MED LIST changes: +FIORICET1 EA ORAL
--- NOTE | 2020-05-24 13:40 | NUR ---
ED Nurse Note: Patient walked into ED from home c/o 05/25, aching, constant right upper chest pain x 2 days. Patient denies shortness of breath, O2 sat 98% on RA. No s/s of acute distress. Pt has hx of asthma, denies missing medications. Patient AxO x 4, on the ekg monitor tech, no s/s of acute distress.
[2020-05-24 13:50] VITALS: BP 121/50
--- NOTE | 2020-05-24 14:00 | NUR ---
ED Nurse Note: Rapid covid swab sent to lab. Xray at bedside.
--- NOTE | 2020-05-24 14:15 | NUR ---
ED Nurse Note: ERMD at bedside
[2020-05-24] MEDS ORDERED: NAPROXEN500 M2 ORAL (14:24)
[2020-05-24] MEDS ORDERED: FAMOTIDINE20 MG ORAL (14:24)
--- NOTE | 2020-05-24 14:30 | Diagnostic Imaging Report ---
EXAM: XR Chest, 1 View CLINICAL HISTORY: SOB TECHNIQUE: Frontal view of the chest. COMPARISON: Chest radiograph on 06/14/2019 FINDINGS: Hardware: None. Lungs/pleura: Normal. No focal consolidation. No pleural effusion or pneumothorax. Heart/mediastinum: Normal. No cardiomegaly. Soft tissues: Unremarkable. Bones: No acute fracture. Mild curvature of the spine. Upper abdomen: Normal. IMPRESSION: No acute disease identified.
[2020-05-24 14:35] VITALS: BP 118/82
--- NOTE | 2020-05-24 14:35 | NUR ---
ER DISCHARGE NOTE: Patient is cleared to be discharged per ERMD, pt is aox4, on room air, with stable vital signs. pt was given dc and prescription instructions, pt was able to verbalize understanding, pt id band removed. pt is able to ambulate with steady gait. pt took all belongings.
--- NOTE | 2020-05-24 14:35 | Emergency Room Report ---
History of Present Illness General Chief Complaint: Chest Pain Source: Patient Present Illness HPI Disclaimer: Please note that this report is being documented using [employer] technology. This can lead to erroneous entry secondary to incorrect interpretation by the dictating instrument. HPI: 29-year-old female presents with right-sided chest pain present for 2 days. Sharp worse with palpation and movement. No nausea no vomiting patient denies any fevers or coughing. She denies any wheezing. She has a history of asthma and gastritis. Mild sore throat. Pain is 8 out of 10. Allergies: Coded Allergies: No Known Allergies (Unverified , 12/29/13) COVID-19 Screening Contact w/high risk pt: No Experienced COVID-19 symptoms?: Yes COVID-19 Testing performed SUPERVISOR TESTING: No Patient History Last Menstrual Period: NA, (irregular) Reviewed Nursing Documentation: PMH: Agreed; PSxH: Agreed Nursing Documentation-PMH Past Medical History: No History, Except For Hx Asthma: Yes Hx Gastrointestinal Problems: Yes - GERD Hx Seizures: Yes Review of Systems All Other Systems: negative except mentioned in HPI Physical Exam Vital Signs Date Time Temp Pulse Resp B/P (MAP) Pulse Ox O2 Delivery O2 Flow Rate FiO2 05/24/20 13:33 98.6 71 16 121/50 (73) 98 Room Air Sp02 EP Interpretation: reviewed, normal General Appearance: well appearing, no apparent distress Head: normocephalic, atraumatic Eyes: bilateral eye PERRL, bilateral eye EOMI ENT: hearing grossly normal, moist mucus membranes Neck: full range of motion, supple Respiratory: lungs clear, normal breath sounds, no rhonchi, no respiratory distress, no retraction, no wheezing, other - Right-sided chest wall tenderness no crepitus or deformity Cardiovascular #1: normal peripheral pulses, regular rate, rhythm, no murmur Gastrointestinal: non tender, soft, non-distended, no guarding Neurologic: alert, oriented x3, no focal defects Skin: normal color, warm/dry Medical Decision Making Diagnostic Impression: Primary Impression: Atypical chest pain ER Course Patient presents with right-sided chest pain. Differential included costochondritis, muscle strain, muscle spasm, GERD, less likely PE or ACS. EKG had no ischemic changes. Patient has no significant past medical history besides asthma and gastritis. She was not wheezing. COVID testing was negative. Chest x-ray clear. Low suspicion for emergent etiology. Will prescribe anti-inflammatories and I did add an antacid to her medication regimen. Have her follow-up with her PMD. Return precautions given. EKG Diagnostic Results Rate: bradycardiac Rhythm: NSR ST Segments: no acute changes Chest X-Ray Diagnostic Results Chest X-Ray Diagnostic Results : Chest X-Ray Ordered: Yes # of Views/Limited/Complete: 1 View Indication: Chest Pain EP Interpretation: Yes Interpretation: no consolidation, no effusion, no pneumothorax Impression: No acute disease Electronically Signed by: Reuben Pérez MD Last Vital Signs Date Time Temp Pulse Resp B/P (MAP) Pulse Ox O2 Delivery O2 Flow Rate FiO2 05/24/20 13:50 71 16 Room Air 05/24/20 13:50 98.6 121/50 98 Disposition: HOME, SELF-CARE Condition: Stable Scripts Famotidine* (Pepcid 20mg tablet*) 20 Mg Tablet 20 MG ORAL TWICE A DAY, #60 TAB 0 Refills Prov: Reuben Pérez M.D. 05/24/20 Naproxen* (NAPROXEN*) 500 Mg Tablet 500 MG ORAL TWICE A WEEK PRN for For Pain, #60 TAB 0 Refills Prov: Reuben Pérez M.D. 05/24/20 Patient Instructions: Nonspecific Chest Pain Additional Instructions: Patient is instructed to follow-up with her primary care doctor, primary care clinic or county clinic in 1 to 2 days. Patient instructed to return for any worsening symptoms or concerns. Disclaimer: Please note that this report is being documented using [employer] technology. This can lead to erroneous entry secondary to incorrect interpretation by the dictating instrument. Reuben Pérez M.D. May 24, 2020 14:35
== END 2020-05-24 14:35 | disposition home or self-care (01) ==
LOC: EMR 13:58
DX: R07.89 Other chest pain (principal); R07.0 Pain in throat; K21.9 Gastro-esophageal reflux disease without esophagitis; G40.909 Epilepsy, unspecified, not intractable, without status epilepticus
CPT/HCPCS: 71045; U0002; Z7502; 99283

== ENCOUNTER 2021-01-06 09:49 | Emergency (ER) | payer OTHER ==
[~2021-01-06] VITALS: Ht 149.9 cm; Wt 54.9 kg
[~2021-01-06 09:49] MED LIST changes: +FAMOTIDINE20 MG ORAL; +NAPROXEN500 M2 ORAL
[2021-01-06 10:19] VITALS: BP 112/67
--- NOTE | 2021-01-06 10:30 | NUR ---
Patient reports to the ER c/o congestion and tonsil pain which started on Monday. She reports a chronic hx of tonsil infections. Medical hx of asthma, bronchitis, depression. Independently ambulatory AAOX4 Allergy: LEONILA
[2021-01-06] MEDS ORDERED: ZITHROMAX250 MG ORAL (10:37)
--- NOTE | 2021-01-06 10:41 | Emergency Room Report ---
History of Present Illness General Chief Complaint: Upper Respiratory Illness Source: Patient Present Illness HPI Patient presents emergency department today complaint nasal congestion sore throat change in voice this been going on for about 2 weeks. Patient thinks that she might have a sinus infection. She complains of cough and congestion she does have a history of asthma she denies any shortness of breath or difficulty swallowing. No other complaints are noted patient noted to be mild to moderate. No other modifying factors. No other associated signs and symptoms. No other complaints were noted. Allergies: Coded Allergies: No Known Allergies (Unverified , 12/29/13) COVID-19 Screening Contact w/high risk pt: No Recent Travel to affected area: No Experienced COVID-19 symptoms?: No COVID-19 Testing performed [employer]: Yes COVID-19 Screening: Negative COVID-19 COVID-19 Testing Source: JESSA Chen Patient History Past Medical History: asthma Past Surgical History: none Pertinent Family History: none Social History: Denies: smoking, alcohol use, drug use Last Menstrual Period: 4 months ago Now: No : 0 Para: 0 Reviewed Nursing Documentation: PMH: Agreed; PSxH: Agreed Nursing Documentation-PMH Past Medical History: No History, Except For Hx Asthma: Yes Hx Gastrointestinal Problems: Yes - GERD Hx Seizures: Yes Review of Systems All Other Systems: negative except mentioned in HPI Physical Exam Vital Signs Date Time Temp Pulse Resp B/P (MAP) Pulse Ox O2 Delivery O2 Flow Rate FiO2 01/06/21 10:19 98.1 81 16 112/67 (82) 98 Room Air Sp02 EP Interpretation: reviewed, normal General Appearance: normal inspection, well appearing, no apparent distress, alert Head: atraumatic Eyes: bilateral eye normal inspection ENT: normal ENT inspection, hearing grossly normal, normal voice Neck: normal inspection, full range of motion, supple, no bony tend Respiratory: normal inspection, lungs clear, normal breath sounds, no respiratory distress, no retraction, no wheezing Cardiovascular #1: regular rate, rhythm, no edema Gastrointestinal: normal inspection, normal bowel sounds, non tender, soft, no guarding, no hernia Genitourinary: no CVA tenderness Musculoskeletal: normal inspection, back normal, normal range of motion Neurologic: alert, responsive, speech normal, normal inspection Psychiatric: normal inspection, judgement/insight normal, mood/affect normal Skin: no rash Medical Decision Making Diagnostic Impression: Primary Impression: Pharyngitis, acute ER Course Patient present to the Emergency Department today complaining of cough and congestion. Differential considerations include pneumonia bronchitis, asthma, COPD just to name a few.Patient exam is fairly benign. I felt the symptoms are consistent with pharyngitis, sinusitis. I felt the patient benefit from antibiotics. Patient was also given the inhaler.Patient is advised to follow up with primary doctor in 2-3 days and return the emergency room for any worsening symptoms and as needed. Last Vital Signs Date Time Temp Pulse Resp B/P (MAP) Pulse Ox O2 Delivery O2 Flow Rate FiO2 01/06/21 10:29 Room Air 01/06/21 10:19 98.1 81 16 112/67 (82) 98 Status: improved Disposition: HOME, SELF-CARE Condition: Stable Scripts Azithromycin* (ZITHROMAX*) 250 Mg Tablet 250 MG ORAL DAILY, #6 TAB 0 Refills Take two tables once daily for 1 day, then one tablet once daily for 4 days. Prov: Cr Muse MD 01/06/21 Patient Instructions: Upper Respiratory Infection, Adult Cr Muse MD Jan 06, 2021 10:41
== END 2021-01-06 11:00 | disposition home or self-care (01) ==
LOC: EMR 10:35
DX: J02.9 Acute pharyngitis, unspecified (principal); K21.9 Gastro-esophageal reflux disease without esophagitis; G40.909 Epilepsy, unspecified, not intractable, without status epilepticus
CPT/HCPCS: 99282